=== PATIENT | female | born 1990 | race Hispanic/Latino ===

== ENCOUNTER 2017-10-14 17:03 | Emergency (ER) | payer OTHER ==
[2017-10-14 17:19] VITALS: RESP 18; O2SAT 98
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
[2017-10-14 18:22] VITALS: BP 126/73; PULSE 78; TEMP 98
--- NOTE | 2017-10-15 09:18 | RAD ---
PROCEDURE: Radiographs of the Right Forearm HISTORY: Injury radiographs of the COMPARISON: Correlation made with concurrent radiographs of the right elbow TECHNIQUE: Frontal and lateral views obtained. FINDINGS: BONES: No definitive evidence of acute displaced fracture nor dislocation. Previously noted of posterior joint effusion suggesting a occult injury is not appreciated on this study. Please refer to concurrent lumbar radiographs and corresponding report. JOINT SPACES: Unremarkable. OTHER FINDINGS: None. IMPRESSION: No definitive evidence of acute displaced fracture nor dislocation. . Posterior joint effusion (which suggests occult injury) seen on concurrent radiographs of the elbow not appreciated on this study
--- NOTE | 2017-10-15 09:21 | RAD ---
PROCEDURE: Radiographs of the right elbow. HISTORY: Injury COMPARISON: No prior. FINDINGS: BONES: There appears to be a fracture of the neck of the right radius. Followup studies such as CT scan or MRI could be performed. JOINTS: Normal. No osteoarthritis. SOFT TISSUES: Normal. JOINT EFFUSION: Moderate-sized posterior joint effusion. OTHER FINDINGS: None. IMPRESSION: Apparent fracture of the neck of the radius with associated posterior joint effusion. Follow-up studies such as MRI or CT scan could be performed for further evaluation.
== END 2017-10-14 18:22 | disposition home or self-care (01) ==
LOC: C.ER 17:03
DX: S52.131A Displaced fracture of neck of right radius, initial encounter for closed fracture (principal); V19.9XXA Pedal cyclist (driver) (passenger) injured in unspecified traffic accident, initial encounter; Y93.55 Activity, bike riding

== ENCOUNTER 2017-10-16 14:18 | Emergency (ER) | payer OTHER ==
[2017-10-16 14:34] VITALS: PULSE 88; RESP 16; TEMP 98.8; O2SAT 98
--- NOTE | 2017-10-16 14:36 | C.PDOC ---
Chief Complaint (Nursing): Upper Extremity Problem/Injury Past Medical History Vital Signs: Last Vital Signs Temp 98.8 F 10/16/17 14:28 Pulse 88 10/16/17 14:28 Resp 16 10/16/17 14:28 BP Pulse Ox 98 10/16/17 14:28 - Medical History PMH: Asthma - Social History Hx Alcohol Use: No Hx Substance Use: No ED Course And Treatment O2 Sat by Pulse Oximetry: 98 Disposition - Disposition
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
== END 2017-10-16 15:02 | disposition home or self-care (01) ==
LOC: C.ER 14:18
DX: S52.121A Displaced fracture of head of right radius, initial encounter for closed fracture (principal); V19.9XXA Pedal cyclist (driver) (passenger) injured in unspecified traffic accident, initial encounter; Y93.55 Activity, bike riding